=== PATIENT | male | born 1965 | race Two or more races ===

== ENCOUNTER 2021-12-03 02:56 | Emergency (ER) | payer OTHER ==
[2021-12-03 03:09] VITALS: BP 133/87; TEMP 98.9; BMI 31.5
[2021-12-03] MEDS ORDERED: ACETAMINOPHEN 325 MG TABLET (FP) PO ONE (03:16)
[2021-12-03] MEDS ORDERED: ACETAMINOPHEN 325 MG TABLET (FP) ONE (03:18)
[2021-12-03 03:48] VITALS: PULSE 95
== END 2021-12-03 03:56 | disposition home or self-care (01) ==
LOC: JER 02:56
DX: R33.9 Retention of urine, unspecified (principal)
CPT/HCPCS: 87086; 99283-25

== ENCOUNTER 2021-12-04 20:21 | Emergency (ER) | payer OTHER ==
[2021-12-04 20:38] VITALS: BP 130/89; PULSE 90; TEMP 97.9; BMI 30.8
[2021-12-04] MEDS ORDERED: ACETAMINOPHEN 500 MG TABLET (FP) PO ONE (21:38)
[2021-12-04] MEDS ORDERED: ACETAMINOPHEN 325 MG TABLET (FP) ONE (21:45)
== END 2021-12-04 22:17 | disposition home or self-care (01) ==
LOC: JER 20:21
DX: R33.9 Retention of urine, unspecified (principal)
CPT/HCPCS: 99283-25

== ENCOUNTER 2021-12-14 11:06 | Emergency (ER) | payer OTHER ==
[2021-12-14 11:42] VITALS: BP 118/83; TEMP 99.3; BMI 30.1
[2021-12-14] MEDS ORDERED: ACETAMINOPHEN 325 MG TABLET (FP) PO ONE (12:26)
[2021-12-14] MEDS ORDERED: LIDOCAINE HCL 2% JELLY 10 ML CARTRIDGE UR ONE (12:31)
[2021-12-14] MEDS ORDERED: LIDOCAINE HCL 2% JELLY 10 ML CARTRIDGE ONE (12:41)
[2021-12-14] MEDS ORDERED: ACETAMINOPHEN 325 MG TABLET (FP) ONE (12:42)
[2021-12-14 13:47] LABS: EPI CELLS 5 /uL (0-25.1); HYALINE CASTS 3 /uL (0-3.1); URINE APPEARANCE CLOUDY; URINE BACTERIA 1995 /uL (0-1359); URINE BILIRUBIN NEGATIVE (NEGATIVE); URINE COLOR YELLOW; URINE GLUCOSE (UA) NEGATIVE (NEGATIVE); URINE KETONE NEGATIVE (NEGATIVE); URINE LEUK ESTERASE 3+ (NEGATIVE); URINE NITRITE POSITIVE (NEGATIVE); URINE PROTEIN 2+ (NEGATIVE); URINE RBC 6008 /uL (0-23.9); URINE UROBILINOGEN 0.2 mg/dL (0.2-1.0); URINE WBC 1337 /uL (0-25.8)
[2021-12-14] MEDS ORDERED: CEFTRIAXONE 1,000 MG in DEXTROSE 5%-WATER - 50 ML IVPB ONE (14:16)
[2021-12-14] MEDS ORDERED: CEFTRIAXONE 1 GM/50 ML BAG ONE (14:23)
[2021-12-14 15:25] VITALS: PULSE 96
[2021-12-15 17:09] LABS: SARS-CoV-2 NAA Not Detected (Not Detected)
== END 2021-12-14 15:27 | disposition home or self-care (01) ==
LOC: JER 11:06
DX: N30.00 Acute cystitis without hematuria (principal)
CPT/HCPCS: 81003; 87086; 87186; 99284-25; C9803-CS; U0003; U0005

== ENCOUNTER 2021-12-19 04:23 | Day surgery (SDC) | payer OTHER ==
[2021-12-15 10:08] VITALS: BMI 30.1
[2021-12-19] MEDS ORDERED: MIDAZOLAM HCL 2 MG/2 ML SINGLE DOSE VIAL ONE ×2 (09:15→09:18)
[2021-12-19] MEDS ORDERED: FENTANYL CITRATE/PF 50 MCG/ML VIAL ONE (09:23)
[2021-12-19] MEDS ORDERED: CEPHALEXIN MONOHYDRATE 500 MG CAPSULE (UD) PO SCH (09:30)
[2021-12-19] MEDS ORDERED: ACETAMINOPHEN 500 MG TABLET (FP) PO SCH (09:30)
[2021-12-19] MEDS ORDERED: GENTAMICIN SO4 80 MG/2 ML VIAL IVPB ONE (09:30)
[2021-12-19] MEDS ORDERED: ceFAZolin SODIUM 1 GM VIAL IVPB ONE (09:30)
[2021-12-19] MEDS ORDERED: ACETAMINOPHEN INJECTION 100 ML IVPB ONE (09:38)
[2021-12-19] MEDS ORDERED: amLODIPine BESYLATE 5 MG TABLET (FP) PO SCH (10:00)
[2021-12-19] MEDS ORDERED: ACETAMINOPHEN 325 MG TABLET (FP) PO PRN ×2 (10:39→11:45)
[2021-12-19] MEDS ORDERED: FUROSEMIDE 40 MG/4 ML INJECTABLE VIAL ONE (10:54)
[2021-12-19] MEDS ORDERED: FUROSEMIDE 40 MG/4 ML INJECTABLE VIAL IVPUSH ONE ×2 (10:57→11:45)
[2021-12-19] MEDS ORDERED: SODIUM CHLORIDE 0.9% 1000 ML INFUS.BAG IV SCH (11:15)
[2021-12-19] MEDS ORDERED: oxyCODONE HCL 5 MG TABLET PO PRN ×2 (11:45→14:28)
[2021-12-19] MEDS ORDERED: LACTATED RINGERS SOLUTION 1,000 ML IV SCH (12:30)
[2021-12-19 12:43] VITALS: TEMP 97.5
[2021-12-19] MEDS ORDERED: oxyCODONE HCL 5 MG TABLET ONE ×2 (13:26→14:30)
[2021-12-19 15:28] VITALS: BP 130/82; PULSE 75
[2021-12-19] MEDS ORDERED: ATORVASTATIN CA 10 MG TABLET (FP) PO SCH (22:00)
== END 2021-12-19 16:17 | disposition home or self-care (01) ==
LOC: JASU-SURG 04:23
PROVIDERS: ATTEND Urology
PROC: 0VT08ZZ Resection of Prostate, Via Natural or Artificial Opening Endoscopic (ICD-10-PCS; principal; 2021-12-19 09:00)
DX: N40.1 Benign prostatic hyperplasia with lower urinary tract symptoms (principal); R33.8 Other retention of urine; N32.89 Other specified disorders of bladder
CPT/HCPCS: 87086; 88305-TC; 94760

== ENCOUNTER 2021-12-19 20:06 | Observation (INO) | payer OTHER ==
[2021-12-19] MEDS ORDERED: morphine CARPU-JECT 4 MG/1 ML DISP.SYRIN IVPUSH ONE (20:41)
[2021-12-19] MEDS ORDERED: morphine SULFATE 4 MG/ML VIAL ONE (20:58)
[2021-12-19 22:20] LABS: URINE COLOR RED
[2021-12-19 22:21] LABS: URINE APPEARANCE TURBID
[2021-12-19 22:22] LABS: URINE BILIRUBIN NEGATIVE (NEGATIVE); URINE GLUCOSE (UA) NEGATIVE (NEGATIVE)
[2021-12-19 22:23] LABS: EPI CELLS FEW /uL (0-25.1); URINE BACTERIA FEW /uL (0-1359); URINE KETONE NEGATIVE (NEGATIVE); URINE PROTEIN 3+ (NEGATIVE); URINE RBC >100 /uL (0-23.9); URINE UROBILINOGEN 0.2 mg/dL (0.2-1.0); URINE WBC 0-3 /uL (0-25.8)
[2021-12-19] MEDS ORDERED: ACETAMINOPHEN 1000 MG/100 ML BAG IVPB ONE (22:30)
[2021-12-19] MEDS ORDERED: ACETAMINOPHEN INJECTION 100 ML IVPB ONE (22:33)
[2021-12-19 23:20] LABS: BASO % 0.3 % (0-2.0); EOS % 0.5 % (0-4.5); HEMATOCRIT 39.3 % (35.4-49); HEMOGLOBIN 13.3 GM/dL (11.7-16.9); LYMPH % 10.4 % (8-40); MCH 31.3 pg (25.7-33.7); MEAN CELL VOLUME 92.2 fl (80-96); MEAN PLT VOLUME 8.3 fl (7.5-11.1); MONO % 5.2 % (3.8-10.2); NEUT % 83.6 % (42.8-82.8); PLATELET COUNT 246 10^3/uL (134-434); RBC 4.26 M/mm3 (4.00-5.60); RDW 12.6 % (11.9-15.9); WHITE BLOOD COUNT 11.4 K/mm3 (4.0-10.0)
[2021-12-19 23:32] LABS: ALBUMIN 3.2 g/dl (3.4-5.0); BLOOD UREA NITROGEN 20.1 mg/dL (7-18); CALCIUM 8.8 mg/dL (8.5-10.1)
[2021-12-19 23:35] LABS: CREATININE 1.1 mg/dL (0.55-1.3)
[2021-12-19 23:37] LABS: BILIRUBIN,TOTAL 0.4 mg/dL (0.2-1); TOT PROT 6.8 g/dl (6.4-8.2)
[2021-12-20] MEDS ORDERED: TAMSULOSIN HCL 0.4 MG CAP PO ONE (02:47)
[2021-12-20] MEDS ORDERED: ACETAMINOPHEN 325 MG TABLET (FP) PO PRN (03:03)
[2021-12-20] MEDS ORDERED: POLYETHYLENE GLYCOL (HEALTHYLAX) 3350 17 GM PACKET PO PRN (03:03)
[2021-12-20] MEDS ORDERED: morphine SULFATE 4 MG/ML VIAL ONE (03:48)
[2021-12-20] MEDS: morphine SULFATE 4 MG/ML VIAL IVPUSH PRN ×2 (03:52→10:01)
[2021-12-20] MEDS: SODIUM CHLORIDE 1,000 ML IV SCH ×3 (04:12→23:40)
[2021-12-20] MEDS: CEPHALEXIN MONOHYDRATE 500 MG CAPSULE (UD) PO SCH ×4 (06:17→23:34)
[2021-12-20] MEDS: ACETAMINOPHEN 1000 MG/100 ML BAG IVPB PRN ×2 (06:17→15:39)
[2021-12-20] MEDS: amLODIPine BESYLATE 5 MG TABLET (FP) PO SCH (10:02)
[2021-12-20] MEDS: DOCUSATE SODIUM 100 MG CAPSULE (FP) PO SCH ×2 (10:02→21:47)
[2021-12-20] MEDS: HYDROCHLOROTHIAZIDE 12.5 MG CAPSULE (FP) PO SCH (10:03)
[2021-12-20] MEDS: LOSARTAN POTASSIUM 50 MG TABLET PO SCH (10:03)
[2021-12-20 20:28] VITALS: BMI 29.9
[2021-12-20] MEDS: ATORVASTATIN CA 10 MG TABLET (FP) PO SCH (21:47)
[2021-12-21] MEDS: CEPHALEXIN MONOHYDRATE 500 MG CAPSULE (UD) PO SCH ×4 (05:41→23:25)
[2021-12-21 09:23] LABS: BASO % 0.3 % (0-2.0); EOS % 1.6 % (0-4.5); HEMATOCRIT 36.4 % (35.4-49); HEMOGLOBIN 12.3 GM/dL (11.7-16.9); LYMPH % 17.9 % (8-40); MCH 31.4 pg (25.7-33.7); MCHC 33.8 g/dl (32.0-35.9); MEAN CELL VOLUME 92.7 fl (80-96); MEAN PLT VOLUME 8.2 fl (7.5-11.1); MONO % 7.1 % (3.8-10.2); NEUT % 73.1 % (42.8-82.8); PLATELET COUNT 256 10^3/uL (134-434); RBC 3.93 M/mm3 (4.00-5.60); RDW 12.9 % (11.9-15.9); WHITE BLOOD COUNT 7.6 K/mm3 (4.0-10.0)
[2021-12-21 09:34] LABS: INR 1.06 (0.83-1.09); PROTHROMBIN TIME (PATIENT) 12.2 SEC (9.7-13.0)
[2021-12-21 09:36] LABS: ACTIVATED PTT 19.1 SECONDS (25.2-36.5)
[2021-12-21 09:43] LABS: CALCIUM 8.6 mg/dL (8.5-10.1)
[2021-12-21 09:44] LABS: BLOOD UREA NITROGEN 17.8 mg/dL (7-18)
[2021-12-21 09:47] LABS: CREATININE 0.8 mg/dL (0.55-1.3)
[2021-12-21] MEDS ORDERED: TAMSULOSIN HCL 0.4 MG CAP PO ONE (10:00)
[2021-12-21] MEDS: LOSARTAN POTASSIUM 50 MG TABLET PO SCH (10:11)
[2021-12-21] MEDS: amLODIPine BESYLATE 5 MG TABLET (FP) PO SCH (10:11)
[2021-12-21] MEDS: HYDROCHLOROTHIAZIDE 12.5 MG CAPSULE (FP) PO SCH (10:11)
[2021-12-21] MEDS: DOCUSATE SODIUM 100 MG CAPSULE (FP) PO SCH ×2 (10:11→21:15)
[2021-12-21] MEDS: SODIUM CHLORIDE 1,000 ML IV SCH (10:12)
[2021-12-21] MEDS: ATORVASTATIN CA 10 MG TABLET (FP) PO SCH (21:15)
[2021-12-22] MEDS: CEPHALEXIN MONOHYDRATE 500 MG CAPSULE (UD) PO SCH ×2 (05:26→11:02)
[2021-12-22] MEDS: SODIUM CHLORIDE 1,000 ML IV SCH (05:30)
[2021-12-22] MEDS: LOSARTAN POTASSIUM 50 MG TABLET PO SCH (11:02)
[2021-12-22] MEDS: DOCUSATE SODIUM 100 MG CAPSULE (FP) PO SCH (11:02)
[2021-12-22] MEDS: HYDROCHLOROTHIAZIDE 12.5 MG CAPSULE (FP) PO SCH (11:02)
[2021-12-22] MEDS: amLODIPine BESYLATE 5 MG TABLET (FP) PO SCH (11:02)
[2021-12-22 16:10] VITALS: BP 133/73; PULSE 59; TEMP 98.2
== END 2021-12-22 16:33 | disposition home or self-care (01) ==
LOC: JER 20:06 → JERBED 22:32 → J5S 12-20 09:04
PROVIDERS: ADMIT Hospitalist; ATTEND Family Medicine
PROC: 3E033NZ Introduction of Analgesics, Hypnotics, Sedatives into Peripheral Vein, Percutaneous Approach (ICD-10-PCS; principal; 2021-12-19)
DX: N40.0 Benign prostatic hyperplasia without lower urinary tract symptoms (principal); I10 Essential (primary) hypertension; R33.9 Retention of urine, unspecified; N39.0 Urinary tract infection, site not specified; R31.0 Gross hematuria; Z96.0 Presence of urogenital implants; E78.5 Hyperlipidemia, unspecified
CPT/HCPCS: 0241U-QW; 36415; 80048; 80053; 81003; 85025; 85610; 85730; 87086; 96374; 96375; 96376; 99285-25; G0378

== ENCOUNTER 2023-09-03 17:50 | Emergency (ER) | payer OTHER ==
[2023-09-03 18:03] VITALS: BP 143/76; PULSE 58; RESP 18; TEMP 98.7; BMI 28.7
[2023-09-03] MEDS ORDERED: KETOROLAC TROMETHAMINE 30 MG/1 ML VIAL IM ONE (18:23)
[2023-09-03] MEDS ORDERED: KETOROLAC TROMETHAMINE 30 MG/1 ML VIAL ONE (18:38)
== END 2023-09-03 19:28 | disposition home or self-care (01) ==
LOC: JERFT 17:50
PROC: 3E0233Z Introduction of Anti-inflammatory into Muscle, Percutaneous Approach (ICD-10-PCS; principal; 2023-09-03)
DX: M54.6 Pain in thoracic spine (principal)
CPT/HCPCS: 72040-TC; 72070-TC-FY; 99284-25